=== PATIENT | female | born 1940 | race Caucasian/White ===

== ENCOUNTER 2019-09-19 12:19 | Emergency (ER) | payer MEDICARE, MEDICAID ==
[~2019-09-19] VITALS: Ht 170.2 cm; Wt 50.0 kg
[~2019-09-19 12:19] MED LIST: MECL-159 PO
[2019-09-19 14:08] LABS: CLARITY,URINE CLEAR (Clear); COLOR,URINE YELLOW (Yellow); GLUCOSE, URINE NEGATIVE (Neg); KETONES,URINE NEGATIVE (Neg); LEUKOCYTE ESTERASE ,URINE SMALL (Neg); NITRITES, URINE NEGATIVE (Neg); OCCULT BLOOD,URINE NEGATIVE (Neg); PH,URINE 6.5 (4.8-8.0); PROTEIN,URINE NEGATIVE (Neg); UROBILINOGEN,URINE 0.2 E.U/dL (0.2-1.0)
[2019-09-19 14:12] LABS: ALANINE AMINOTRANSFERASE 13 U/L (12-78); ALBUMIN 3.8 G/DL (3.4-5.0); ALBUMIN/GLOBULIN RATIO 1.1 (1.1-1.5); ALKALINE PHOSPHATASE 90 IU/L (46-116); ANION GAP 6 (8-16); ASPARTATE AMINO TRANSFERASE 21 U/L (10-37); BILIRUBIN,TOTAL 0.4 MG/DL (0.1-1.0); BLOOD UREA NITROGEN 11 MG/DL (7-18); BUN/CREATININE RATIO 16.2 (6.6-38.0); CALCIUM 9.4 MG/DL (8.5-10.1); CHLORIDE 108 MMOL/L (99-107); CREATININE 0.68 MG/DL (0.40-0.90); GLUCOSE 96 MG/DL (70-104); POTASSIUM 3.5 MMOL/L (3.5-5.1); SODIUM 144 MMOL/L (135-145); TOTAL CARBON DIOXIDE 30.4 MMOL/L (24-32); TOTAL PROTEIN 7.4 G/DL (6.4-8.2); eGFR 84 ML/MIN
[2019-09-19 14:12] LABS: UA COLLECTION TYPE CLN CATCH MIDSTREAM
[2019-09-19 14:14] LABS: BASOPHILS % (AUTO) 0.5 % (0-1); EOSINOPHILS % (AUTO) 0.8 % (0-6); HEMATOCRIT 37.2 % (35.0-45.0); HEMOGLOBIN 12.1 g/dl (12.0-16.0); LYMPHOCYTES # (AUTO) 1.2 X10'3 (1.1-4.8); MEAN CORPUSCULAR HEMOGLOBIN 27.6 PG (27.0-31.0); MEAN CORPUSCULAR HGB CONC 32.4 g/dL (33.0-36.5); MEAN PLATELET VOLUME 8.1 FL (7.4-10.4); MONOCYTES # (AUTO) 0.4 X10'3 (0-0.9); MONOCYTES % (AUTO) 7.7 % (2-12); NEUTROPHILS # (AUTO) 3.7 X10'3 (1.8-7.7); PLATELET COUNT 284 X10'3 (140-440); RED BLOOD COUNT 4.38 X10'6 (4.20-5.60); RED CELL DISTRIBUTION WIDTH 15.2 % (11.5-14.5); WHITE BLOOD COUNT 5.3 X10'3 (4.5-11.0)
[2019-09-19 14:14] LABS: BACTERIA,URINE 2+ /HPF (Neg); MUCUS STRANDS NONE SEEN /LPF (Neg); RBC,URINE 0-2 /HPF (0-2); SQUAMOUS EPITHELIAL CELL,UR FEW /LPF (FEW); WBC,URINE 0-4 /HPF (0-4)
[2019-09-19 14:15] LABS: URINE AMPHETAMINE SCREEN NEGATIVE (Neg); URINE BARBITUATE SCREEN NEGATIVE (Neg); URINE BENZODIAZEPINES SCREEN NEGATIVE (Neg); URINE CANNABINOID SCREEN NEGATIVE (Neg); URINE COCAINE SCREEN NEGATIVE (Neg); URINE METHADONE SCREEN NEGATIVE (Neg); URINE OPIATE SCREEN NEGATIVE (Neg); URINE PHENCYCLIDINE SCREEN NEGATIVE (Neg)
[2019-09-19 14:21] LABS: ETHANOL < 0.010 GM/DL (0.0-0.010); LIPASE 274 U/L (73-393)
--- NOTE | 2019-09-19 14:30 | NUR ---
Received pt from [facility]. Pt calm and cooperative.
[2019-09-19] MEDS ORDERED: DONE-46 PO (15:51)
[2019-09-19] MEDS ORDERED: ESZO3TAB40 PO (15:51)
[2019-09-19] MEDS ORDERED: LEVO50TA8 PO (15:51)
--- NOTE | 2019-09-19 15:59 | NUR ---
PACKET FAXED TO [facility]
[2019-09-19] MEDS ORDERED: non-formulary drug (Meclizine HCl 1 TAB) PO SCH (16:00)
--- NOTE | 2019-09-19 17:00 | NUR ---
Pt confused and disoriented at times and somewhat resistive to redirection, but remained pleasant. Pt states, "well I have beginning dementia, so I don't understand things at times."
[2019-09-19] MEDS ORDERED: cloNIDine 0.1 mg tablet PO ONE (17:55)
--- NOTE | 2019-09-19 17:56 | NUR ---
MD notified of blood pressure: 202/102 and pulse 55. MD ordered clonidine 0.1mg x 1 now.
--- NOTE | 2019-09-19 19:31 | NUR ---
Patient exhibits depression and some mild dementia. Patient is well oriented to situation. Patients daughter is coming from the [facility] to cook pickled meat this patient. Patient is cooperative with staff. The tech is assisting the patient in getting dressed.
[2019-09-19 19:45] VITALS: BP 206/102
[2019-09-19] MEDS ORDERED: donepezil 5mg tablet PO SCH (21:00)
[2019-09-19] MEDS ORDERED: zolpidem 5mg tablet PO SCH (21:00)
[2019-09-20] MEDS ORDERED: levoTHYROXINE 25mcg tablet PO SCH (08:00)
== END 2019-09-19 20:19 | disposition home or self-care (01) ==
LOC: ER 12:19
DX: F03.90 Unspecified dementia, unspecified severity, without behavioral disturbance, psychotic disturbance, mood disturbance, and anxiety (principal); R45.851 Suicidal ideations; Z87.891 Personal history of nicotine dependence; Z88.2 Allergy status to sulfonamides
CPT/HCPCS: 36415; 80053; 80305; 80320; 81001; 83690; 84443; 85025; 87077; 87088; 87186; 99284